=== PATIENT | female | born 2000 | race African-American/Black ===

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

== ENCOUNTER → 2022-06-03 20:57 | Observation (INO) ==
[2022-06-03 21:08] LABS: Candida DNA Not Detected (Not Detect); Gardnerella DNA Not Detected (Not Detect); Trichomonas DNA Not Detected (Not Detect)
== END | disposition home or self-care (01) ==
LOC: 1NENULAB
PROVIDERS: ADMIT Obstetrics & Gynecology; ATTEND Obstetrics & Gynecology

== ENCOUNTER 2022-06-07 00:04 | Inpatient (IN) ==
[2022-06-07] MEDS ORDERED: Ringers Solution, Lactated 1,000 ML ONE ×3 (00:19→22:05)
[2022-06-07] MEDS ORDERED: Metoclopramide 10 MG/2 ML VIAL IVP PRN (00:23)
[2022-06-07] MEDS ORDERED: EPHEDrine 50 MG/ML VIAL IVP PRN (00:23)
[2022-06-07] MEDS ORDERED: Naloxone 0.4 MG/ML INJ IVP PRN (00:23)
[2022-06-07] MEDS ORDERED: Azithromycin 500 MG in 0.9 % Sodium Chloride 250 ML IVPB PRN (00:23)
[2022-06-07] MEDS ORDERED: Ondansetron 4 MG/2 ML VIAL IVP PRN (00:23)
[2022-06-07] MEDS ORDERED: Famotidine 20 MG/2 ML VIAL IVP PRN (00:23)
[2022-06-07] MEDS ORDERED: *HR* Nalbuphine 10 MG/ML AMPUL IV PRN (00:23)
[2022-06-07] MEDS ORDERED: Epidural Premix (fent/bupiv) 110 ML EP SCH (00:30)
[2022-06-07] MEDS ORDERED: Oxytocin 30 UNIT/503 ML BAG IVC SCH ×2 (00:30→09:27)
[2022-06-07] MEDS ORDERED: hydrOXYzine pamoate 25 MG CAPSULE PO PRN (00:49)
[2022-06-07 00:54] LABS: Basophils % 0.2 %; Eosinophils % 0.1 %; Hemoglobin 13.8 g/dL (11.5-15.4); Immature Granulocytes % 0.4 % (0-4); Lymphocytes # 2.1 K/mcL (0.6-4.6); Mean Corpuscular HGB Conc 34.5 g/dL (31.6-35.5); Mean Corpuscular Hemoglobin 30.8 pg (28.0-33.3); Mean Corpuscular Volume 89.3 fL (83.0-100.0); Mean Platelet Volume 12.2 fL (9.4-12.4); Monocytes % 5.6 %; Platelet Count 241 K/mcL (140-400); Red Blood Count 4.48 M/mcL (3.82-4.97); Red Cell Distribution Width 12.9 % (11.5-14.5); Segmented Neutrophils % 81.7 %; White Blood Count 17.2 K/mcL (4.3-11.1)
[2022-06-07] MEDS ORDERED: hydrOXYzine pamoate 25 MG CAPSULE PO ONE (01:16)
[2022-06-07] MEDS ORDERED: *HR* FentaNYL (PF) 100 MCG/2 ML VIAL IVP ONE (01:39)
[2022-06-07 03:10] LABS: Amphetamine Screen,Urine Negative ng/mL (Cutoff=1000); Barbiturate Screen,Urine Negative ng/mL (Cutoff=200); Benzodiazepines Screen,Urine Negative ng/mL (Cutoff=200); Cannabinoid Screen,Urine Positive ng/mL (Cutoff = 50); Cocaine Screen,Urine Positive ng/mL (Cutoff= 300); Opiate Screen,Urine Negative ng/mL (Cutoff=300); Phencyclidine Screen,Urine Negative ng/mL (Cutoff=25)
[2022-06-07] MEDS ORDERED: Penicillin G Potassium 5,000,000 UNIT in 0.9 % Sodium Chloride Mini Bag 100 ML IVPB ONE (04:42)
[2022-06-07] MEDS ORDERED: Penicillin G Potassium 2,500,000 UNIT/105 ML MLS IVPB SCH (09:00)
[2022-06-07] MEDS ORDERED: Rho Immune Globulin 1,500 UNIT SYRINGE IM PRN (09:27)
[2022-06-07] MEDS ORDERED: Lanolin 7 G OINT...G. TP PRN (09:27)
[2022-06-07] MEDS ORDERED: Ondansetron ODT 4 MG TAB.RAPDIS SL PRN (09:27)
[2022-06-07] MEDS ORDERED: Benzocaine/Menthol 56 GM AEROSOL SPRAY TP PRN (09:27)
[2022-06-07] MEDS ORDERED: OXYTOCIN/RINGERS LACTATE 10 UNIT/166.6 ML BAG IVC ONE (09:27)
[2022-06-07 10:25] LABS: Alanine Aminotransferase 13 Units/L (7-52); Aspartate Amino Transferase 20 Units/L (13-39); BUN/Creatinine Ratio 8 (6-26); Blood Urea Nitrogen 5 mg/dL (6-20); Lactate Dehydrogenase 298 Units/L (140-271); Uric Acid 4.3 mg/dL (2.3-7.6); eGFR For African Americans > 60 (> 60); eGFR For Non-African Americans > 60 (> 60)
[2022-06-07] MEDS: Prenatal Vit/FA 1 EACH TABLET PO SCH (13:51)
[2022-06-07] MEDS: Acetaminophen 325 MG TABLET PO SCH ×3 (13:51→21:08)
[2022-06-07] MEDS: Ibuprofen 600 MG TABLET PO SCH ×3 (13:53→21:08)
[2022-06-07] MEDS ORDERED: Calcium Gluconate 1,000 MG/10 ML VIAL IVP PRN (21:08)
[2022-06-07] MEDS ORDERED: Magnesium Sulf 20 gm/SW 500mL 4 GM/100 ML BAG IV ONE (21:13)
[2022-06-07 21:16] LABS: Creatinine,Urine 41 mg/dL; Protein/Creatinine Ratio,Urine 0.44 mg/mg (0.00-0.20)
[2022-06-07] MEDS: Ringers Solution, Lactated 1,000 ML IVC SCH (21:45)
[2022-06-07 22:12] LABS: Basophils % 0.2 %; Eosinophils % 0.2 %; Hematocrit 37.2 % (35.3-44.9); Hemoglobin 12.8 g/dL (11.5-15.4); Immature Granulocytes % 0.4 % (0-4); Lymphocytes # 3.1 K/mcL (0.6-4.6); Lymphocytes % 18.8 %; Mean Corpuscular HGB Conc 34.4 g/dL (31.6-35.5); Mean Corpuscular Hemoglobin 30.7 pg (28.0-33.3); Mean Corpuscular Volume 89.2 fL (83.0-100.0); Mean Platelet Volume 11.9 fL (9.4-12.4); Monocytes # 0.9 K/mcL (0.0-1.3); Monocytes % 5.4 %; Neutrophils # 12.2 K/mcL (1.6-8.9); Platelet Count 227 K/mcL (140-400); Red Blood Count 4.17 M/mcL (3.82-4.97); White Blood Count 16.3 K/mcL (4.3-11.1)
[2022-06-07 22:21] LABS: Prothrombin Time 11.1 Seconds (9.4-12.1)
[2022-06-07 22:23] LABS: Activated Partial Thrombo Time 30.2 Seconds (26.0-36.0)
[2022-06-07 22:31] LABS: Alanine Aminotransferase 11 Units/L (7-52); Aspartate Amino Transferase 19 Units/L (13-39); BUN/Creatinine Ratio 6 (6-26); Blood Urea Nitrogen 5 mg/dL (6-20); Lactate Dehydrogenase 221 Units/L (140-271); Uric Acid 4.7 mg/dL (2.3-7.6); eGFR For African Americans > 60 (> 60); eGFR For Non-African Americans > 60 (> 60)
[2022-06-07] MEDS: Magnesium Sulf 20 gm/SW 500mL 20 GM/500 ML IV.SOLN IVC SCH (22:50)
[2022-06-08] MEDS: Ibuprofen 600 MG TABLET PO SCH ×3 (06:35→18:57)
[2022-06-08] MEDS: Acetaminophen 325 MG TABLET PO SCH ×3 (06:35→18:57)
[2022-06-08] MEDS: Magnesium Sulf 20 gm/SW 500mL 20 GM/500 ML IV.SOLN IVC SCH (06:36)
[2022-06-08] MEDS: Ringers Solution, Lactated 1,000 ML IVC SCH (09:56)
[2022-06-08] MEDS: Prenatal Vit/FA 1 EACH TABLET PO SCH (11:00)
[2022-06-09] MEDS: Acetaminophen 325 MG TABLET PO SCH ×2 (04:14→14:28)
[2022-06-09] MEDS: Ibuprofen 600 MG TABLET PO SCH ×2 (04:14→14:25)
[2022-06-09] MEDS: Prenatal Vit/FA 1 EACH TABLET PO SCH (14:29)
[2022-06-09 14:37] VITALS: BP 134/85; PULSE 87; TEMP 99; O2SAT 98
== END 2022-06-09 16:05 | disposition home or self-care (01) | DRG 560 ==
LOC: 1NENULAB 00:04 → 1NENUOBS 07:44
PROVIDERS: ADMIT Registered Nurse; ATTEND Registered Nurse